=== PATIENT | male | born 1980 | race Caucasian/White ===

== ENCOUNTER 2019-02-17 21:20 | Emergency (ER) | payer OTHER ==
--- NOTE | 2019-02-17 21:21 | EDM.PDOC ---
ED HPI GENERAL MEDICAL PROBLEM - General Chief Complaint: General Stated Complaint: R leg pain Time Seen by Provider: 02/17/19 21:21 Source of Information: Reports: EMS, EMS Notes Reviewed (Not Available at time of dictation), Other (Friend). Denies: Old Records (No [facility] records available) History Limitations: Reports: No Limitations - History of Present Illness INITIAL COMMENTS - FREE TEXT/NARRATIVE: The patient was brought to the emergency room via ambulance with EMT accompaniment with a trauma code called on the scene. Note that the patient was sliding on a plastic sled on a steep slope of about 100 feet in length when he flew off the sled and landed on his right leg with obvious leg deformity noticed by germination testing manager on arrival. They did splint the leg using various objects with additional air compression splint applied. He complains of 10/10 sharp leg pain with additional possible mild right ankle discomfort. No other treatment in route with the patient refusing any pain medications prior to arrival to this facility. Note that he is visiting the area from [place]. His last solid oral intake was at noon today with patient having one beer and one whiskey shortly prior to the above accident, which occurred at about 19:00 hours. He denies any head injury, loss of consciousness, change in mental status, headaches, visual changes, paresthesias, nausea, abdominal pain, dyspnea, neck/ back pain, neurological deficits, or other complaints or injuries. The patient denies any chest pain/pressure, heart flutter, dizziness, orthostasis, orthopnea , diaphoresis, paresthesias, recent decreased exercise tolerance, or any other anginal-type symptoms. No recent history of abdominal pain, heartburn, nausea, diarrhea, melena, gross hematochezia, or any food intolerance, including fatty foods, etc.. The patient also denies any recent fever, cough, wheezing, dyspnea , etc.. Onset: Today, Sudden Onset Date: 02/17/19 Onset Time: 19:00 Duration: Constant Location: Reports: Lower Extremity, Right. Denies: Head, Face, Neck, Chest, Abdomen, Back, Pelvis, Upper Extremity, Left, Upper Extremity, Right, Lower Extremity, Left, Radiates to Quality: Reports: Same as Previous Episode, Sharp Severity: Severe Improves with: Reports: Rest Worsens with: Reports: Movement Context: Reports: Trauma (As above) Associated Symptoms: Denies: Confusion, Chest Pain, Cough, Diaphoresis, Fever/ Chills, Headaches, Loss of Appetite, Malaise, Nausea/Vomiting, Rash, Seizure, Shortness of Breath, Syncope, Weakness Treatments PLANT ASSOCIATE: Reports: Spinal Immobilization Right Lower Leg Pain Score (Numeric/FACES): 10 - Related Data Allergies Allergy/AdvReac Type Severity Reaction Status Date / Time No Known Allergies Allergy Verified 02/17/19 21:21 Past Medical History HEENT History: Reports: None. Denies: Hard of Hearing, Impaired Vision Cardiovascular History: Reports: None. Denies: Afib, Aneurysm, Arrhythmia, Blood Clots/VTE/DVT, CAD, Heart Murmur, High Cholesterol, Hypertension, Syncope Respiratory History: Denies: Asthma, COPD, Intubation, Previous, PE, Pneumothorax, Sleep Apnea Gastrointestinal History: Reports: None. Denies: Celiac Disease, Cholelithiasis , GERD, GI Bleed, Inflammatory Bowel Disease, Irritable Bowel Syndrome, PUD Genitourinary History: Reports: None. Denies: Acute Renal Failure, BPH, Chronic Renal Insuffiency, Renal Calculus, Retention, Urinary, STD, Urinary Incontinence, UTI, Recurrent Musculoskeletal History: Reports: Arthritis, Back Pain, Chronic, Fracture, Osteoarthritis. Denies: Gout, Neck Pain, Chronic, RA, SLE Other Musculoskeletal History: Previous left wrist fracture at age 8 Neurological History: Denies: Cerebral Aneurysms, Concussion, CVA, Headaches, Chronic, Head Trauma, Migraines, Seizure, TIA Psychiatric History: Reports: None. Denies: Abuse, Victim of, ADD, ADHD, Addiction, Anxiety, Depression, Psych Hospitalization(s), PTSD, Suicide Attempt , Suicidal Ideation Endocrine/Metabolic History: Reports: None. Denies: Diabetes, Type I, Diabetes , Type II, Diabetes Mellitus, Type 3c, Hypothyroidism, IDDM Hematologic History: Reports: None. Denies: Anemia, Blood Transfusion(s), Iron Deficiency Immunologic History: Reports: None. Denies: AIDS, HIV, SLE Oncologic (Cancer) History: Reports: None. Denies: Basal Cell Carcinoma, Colon , Hodgkin's Lymphoma, Leukemia, Malignant Melanoma, Non-Hodgkin's Lymphoma, Prostate, Squamous Cell Carcinoma Dermatologic History: Reports: None. Denies: Eczema, Psoriasis - Infectious Disease History Infectious Disease History: Reports: Chicken Pox. Denies: C-Difficile, Measles , Meningitis, Mononucleosis, MRSA, Mumps, Rheumatic Fever, Rubella, Scarlet Fever, TB, VRE - Past Surgical History Head Surgeries/Procedures: Reports: None HEENT Surgical History: Reports: None. Denies: Adenoidectomy, Cataract Surgery , Eye Surgery, Myringotomy w Tube(s), Naso-Sinus Surgery, Oral Surgery, Tonsillectomy Cardiovascular Surgical History: Reports: None. Denies: Varicose Respiratory Surgical History: Reports: None. Denies: Thoracentesis GI Surgical History: Reports: None. Denies: Appendectomy, Cholecystectomy, Colonoscopy, EGD, Hernia, Abdominal, Hernia, Inguinal, Hernia Repair/Other Male Surgical History: Reports: Circumcision, Other (See Below). Denies: TURP-Transurethral Resection of Prostate, Vasectomy Other Male Surgeries/Procedures: Circumcision as an Endocrine Surgical History: Reports: None. Denies: Thyroid Biopsy Neurological Surgical History: Reports: None. Denies: C-Spine, Discectomy, Laminectomy, Lumbar Spine, Sacral Spine, Spinal Fusion, Thoracic Spine, Vertebroplasty Musculoskeletal Surgical History: Reports: None. Denies: Arthroscopic Procedure , Carpal Tunnel, Ganglion Cyst, Joint Replacement, ORIF, Shoulder Surgery Oncologic Surgical History: Reports: None Dermatological Surgical History: Reports: None - Past Imaging History Past Imaging History: Reports: None Social & Family History - Tobacco Use Smoking Status *Q: Current Every Day Smoker Tobacco Use Within Last Twelve Months: Cigarettes Years of Tobacco use: 23 Packs/Tins Daily: 0.2 Packs/Tins Daily Comment: Trying to quit smoking. Maximum use of one pack per day with patient started smoking at age 16. Used Tobacco, but Quit: No - Caffeine Use Caffeine Use: Reports: Coffee (5 cups per day), Soda (Rarely). Denies: Energy Drinks, Tea - Alcohol Use Alcohol Use History: Yes Days Per Week of Alcohol Use: 3 Number of Drinks Per Day: 3 Number of Drinks Per Day Comment: Usually and/or mixed drinks. No previous DWIs , problems with alcohol abuse, etc. Total Drinks Per Week: 9 Date of Last Drink: 02/17/19 Time of Last Drink: 18:30 Alcohol Use in Last Twelve Months: Yes - Recreational Drug Use Recreational Drug Use: Yes Drug Use in Last 12 Months: No Recreational Drug Type: Reports: Marijuana/Hashish (Between ages 18 and 35 and used 35 times per year.). Denies: Amphetamines (Speed), Cocaine, Heroin, Inhalants (Glues, Solvents, Aerosols), LSD (Acid), Methamphetamine, Morphine Recreational Drug Route: Reports: Inhaled - Living Situation & Occupation Living situation: Reports: Single (1 child), with Significant Other (And child) Occupation: Employed ([employer]) ED ROS GENERAL - Review of Systems Review Of Systems: ROS reveals no pertinent complaints other than HPI. ED EXAM, GENERAL - Physical Exam Exam: See Below Exam Limited By: No Limitations General Appearance: Alert, WD/WN, No Apparent Distress Eye Exam: Bilateral Eye: EOMI, Normal Fundi, Normal Inspection (No nystagmus), PERRL Ears: Normal External Exam, Normal Canal, Hearing Grossly Normal, Normal TMs Nose: Normal Inspection, Normal Mucosa, No Blood Throat/Mouth: Normal Inspection, Normal Lips, Normal Teeth, Normal Gums, Normal Oropharynx, Normal Voice, No Airway Compromise. No: Dysphagia, Perioral Cyanosis Head: Atraumatic, Normocephalic. No: Facial Swelling, Facial Tenderness, Sinus Tenderness Neck: Normal Inspection, Supple, Non-Tender, Full Range of Motion. No: Carotid Bruit, Lymphadenopathy (L), Lymphadenopathy (R), Thyromegaly Respiratory/Chest: No Respiratory Distress, Lungs Clear, Normal Breath Sounds, No Accessory Muscle Use, Chest Non-Tender. No: Pleural Rub, Retractions Cardiovascular: Normal Peripheral Pulses, No Edema, No Gallop, No JVD, No Murmur , No Rub, Tachycardia (Mild sinus tachycardia with regular rhythm). No: Regular Rate, Rhythm, Gallop/S3, Gallop/S4, Extra Beats, Friction Rub Peripheral Pulses: 1+: Radial (L), Radial (R), 2+: Posterior Tibial (R), Dorsalis Pedis (R) GI/Abdominal: Normal Bowel Sounds, Soft, Non-Tender, No Organomegaly, No Distention, No Abnormal Bruit, No Mass, Pelvis Stable. No: Guarding (Male) Exam: Deferred Rectal (Males) Exam: Deferred Back Exam: Normal Inspection, Full Range of Motion. No: CVA Tenderness (L), CVA Tenderness (R), Muscle Spasm Extremities: No Pedal Edema, Normal Capillary Refill, Leg Pain (Severe right leg pain with movement), Limited Range of Motion (Current splint), Other (Right lower leg splint present as above with somewhat foot over good pedal pulses as above with borderline foot cyanosis). No: Pallor Neurological: Alert, Oriented, CN II-XII Intact, Normal Cognition, Normal Reflexes (Negative Babinski's), No Motor/Sensory Deficits. No: Normal Gait ( Leg fracture with splint) Psychiatric: Normal Affect, Normal Mood Skin Exam: Warm, Dry, Intact, Normal Color, No Rash. No: Diaphoretic, Ecchymosis, Lymphangitis, Wound/Incision Lymphatic: No Adenopathy Course - Vital Signs Last Recorded V/S: See Trauma Code Sheet - Orders/Labs/Meds Orders: Active Orders 24 hr Category Date Time Status Cardiac Monitoring [RC] . DIRECTED Care 02/17/19 21:23 Ordered Peripheral IV Care [RC] . DIRECTED Care 02/17/19 21:24 Ordered Tibia Fibula Rt [CR] Stat Exams 02/17/19 21:22 Ordered Acetaminophen [Tylenol Extra Strength] Med 02/17/19 22:17 Once 1,000 mg PO ONETIME ONE Lactated Ringers [Ringers, Lactated] 1,000 ml Med 02/17/19 21:55 Ordered IV .BOLUS Sodium Chloride 0.9% [Saline Flush] Med 02/17/19 21:24 Ordered 10 ml FLUSH ASDIRECTED PRN Obtain Past Medical Record [OM.PC] Routine Oth 02/17/19 21:23 Ordered Peripheral IV Insertion Adult [OM.PC] Stat Oth 02/17/19 21:24 Ordered Medication Orders Lactated Ringer's (Ringers, Lactated) 1,000 mls @ 999 mls/hr IV .BOLUS ONE Stop: 02/17/19 22:55 Sodium Chloride (Saline Flush) 10 ml FLUSH ASDIRECTED PRN PRN Reason: Keep Vein Open Last Admin: 02/17/19 21:46 Dose: 10 ml Labs: Laboratory Tests 02/17/19 02/17/19 02/17/19 Range/Units 21:35 21:35 21:35 WBC 25.5 H (4.0-10.2) K/uL RBC 5.04 (4.33-5.41) M/uL Hgb 15.6 (13.1-16.8) g/dL Hct 43.4 (39.0-49.0) % MCV 86.1 (84.0-98.0) fL MCH 31.0 (28.2-33.3) pg MCHC 35.9 (31.7-36.0) g/dL RDW 12.7 (11.2-14.1) % Plt Count 205 (150-350) K/uL Neut % (Auto) 91.7 H (45.0-80.0) % Lymph % (Auto) 4.2 L (10.0-50.0) % [place] % (Auto) 3.7 (2.0-14.0) % Eos % (Auto) 0.3 (0.0-5.0) % Baso % (Auto) 0.1 (0.0-2.0) % Neut # (Auto) 23.40 H (1.40-7.00) K/uL Lymph # (Auto) 1.07 (0.50-3.50) K/uL [place] # (Auto) 0.94 (0.00-1.00) K/uL Eos # (Auto) 0.08 (0.00-0.50) K/uL Baso # (Auto) 0.03 (0.00-0.20) K/uL PT (9.5-12.0) SEC INR APTT (21.0-31.3) SEC Sodium 133 L (136-145) mmol/L Potassium 3.3 L (3.5-5.1) mmol/L Chloride 100 (98-107) mmol/L Carbon Dioxide 23.1 (21.0-32.0) mmol/L BUN 15 (7-18) mg/dL Creatinine 0.77 (0.51-1.17) mg/dL Est Cr Clr Drug Dosing TNP Estimated GFR (MDRD) > 60 mL/min Glucose 121 H (74-106) mg/dL Calcium 8.7 (8.5-10.1) mg/dL Total Bilirubin 0.3 (0.2-1.0) mg/dL AST 19 (15-37) U/L ALT 27 (12-78) U/L Alkaline Phosphatase 83 (46-116) IU/L Total Protein 6.8 (6.4-8.2) g/dL Albumin 3.9 (3.4-5.0) g/dL Amylase 24 L (25-115) U/L Lipase 121 (73-393) U/L Ethyl Alcohol 0.021 (0.000-0.080) g/dL 02/17/19 Range/Units 21:35 WBC (4.0-10.2) K/uL RBC (4.33-5.41) M/uL Hgb (13.1-16.8) g/dL Hct (39.0-49.0) % MCV (84.0-98.0) fL MCH (28.2-33.3) pg MCHC (31.7-36.0) g/dL RDW (11.2-14.1) % Plt Count (150-350) K/uL Neut % (Auto) (45.0-80.0) % Lymph % (Auto) (10.0-50.0) % [place] % (Auto) (2.0-14.0) % Eos % (Auto) (0.0-5.0) % Baso % (Auto) (0.0-2.0) % Neut # (Auto) (1.40-7.00) K/uL Lymph # (Auto) (0.50-3.50) K/uL [place] # (Auto) (0.00-1.00) K/uL Eos # (Auto) (0.00-0.50) K/uL Baso # (Auto) (0.00-0.20) K/uL PT 10.3 (9.5-12.0) SEC INR 1.0 APTT 25.5 (21.0-31.3) SEC Sodium (136-145) mmol/L Potassium (3.5-5.1) mmol/L Chloride (98-107) mmol/L Carbon Dioxide (21.0-32.0) mmol/L BUN (7-18) mg/dL Creatinine (0.51-1.17) mg/dL Est Cr Clr Drug Dosing Estimated GFR (MDRD) mL/min Glucose (74-106) mg/dL Calcium (8.5-10.1) mg/dL Total Bilirubin (0.2-1.0) mg/dL AST (15-37) U/L ALT (12-78) U/L Alkaline Phosphatase (46-116) IU/L Total Protein (6.4-8.2) g/dL Albumin (3.4-5.0) g/dL Amylase (25-115) U/L Lipase (73-393) U/L Ethyl Alcohol (0.000-0.080) g/dL Meds: Medications Generic Name Dose Route Start Last Admin Trade Name Freq PRN Reason Stop Dose Admin Lactated Ringer's 1,000 mls @ 999 mls/hr 02/17/19 21:55 Ringers, Lactated IV 02/17/19 22:55 .BOLUS ONE Sodium Chloride 10 ml 02/17/19 21:24 02/17/19 21:46 Saline Flush FLUSH 10 ml ASDIRECTED PRN Administration Keep Vein Open Discontinued Medications Generic Name Dose Route Start Last Admin Trade Name Freq PRN Reason Stop Dose Admin Fentanyl 100 mcg 02/17/19 21:24 02/17/19 21:41 Sublimaze IVPUSH 02/17/19 21:25 50 mcg ONETIME ONE Administration Ondansetron HCl 4 mg 02/17/19 21:24 02/17/19 21:41 Zofran IVPUSH 02/17/19 21:25 4 mg ONETIME ONE Administration - Radiology Interpretation Free Text/Narrative:: X-rays of the right tibia and fibula, 2 views, shows evidence of a severely comminuted proximal mildly angulated proximal tibial and fibular fracture with lateral knee space involvement conveyor monitor shows sinus tachycardia with initial heart rate in the 100s with no ectopy or arrhythmia. Rate improved to the 80s to 90s prior to transfer. Departure - Departure Time of Disposition: 22:35 Disposition: DC/Tfer to [facility] 02 Clinical Impression: Fracture of proximal end of tibia and fibula, Osteoarthritis, Tobacco abuse counseling, Leukocytosis, Hyponatremia, Hypokalemia - Discharge Information *PRESCRIPTION DRUG MONITORING PROGRAM REVIEWED*: Not Applicable *COPY OF PRESCRIPTION DRUG MONITORING REPORT IN PATIENT LEIGHANN: Not Applicable Forms: ED Department Discharge, Interfacility Transfer EMTALA - Problem List & Annotations (1) Fracture of proximal end of tibia and fibula SNOMED Code(s): 24630154 Code(s): S82.109A - UNSP FRACTURE OF UPPER END OF UNSP TIBIA, INIT FOR CLOS FX; S82.839A - OTH FRACTURE OF UPPER AND LOWER END OF UNSP FIBULA, INIT Status : Acute Priority: High Onset Date: 02/17/19 Annotation/Comment:: Trauma Code called by germination testing manager as above. Shortly after patient's arrival to this facility and based on my initial brief primary clinical exam and the above history the trauma code was down graded. IV fentanyl was initiated for pain control. Excellent pedal pulses with patient's right leg left in the splint. IV bolus of lactated Ringer's was initiated in the emergency room with continuation of aggressive IV hydration in route after completion of the initial liter. Telephone consultation at 21:[address] Zuñiga, emergency room physician at [facility] in [place], who does accept the patient for evaluation and treatment, with no further treatment recommendations given. Pain under adequate control at time of patient transfer with vital signs, etc. also stable. Qualifiers: Encounter type: initial encounter Fracture type: closed Laterality: right Qualified Code(s): S82.101A - Unspecified fracture of upper end of right tibia, initial encounter for closed fracture; S82.831A - Other fracture of upper and lower end of right fibula, initial encounter for closed fracture (2) Hypokalemia SNOMED Code(s): 83724902 Code(s): E87.6 - HYPOKALEMIA Status: Acute Priority: Medium Onset Date : 02/17/19 Annotation/Comment:: IV fluids as above. Three loose mild loose stools a couple days ago with no known exposure to infection despite significant leukocytosis likely secondary to stress reaction from current injury. No recent emesis, nausea, known fever, UTI symptoms, or other known source of infection. Note fever in the ER today. (3) Hyponatremia SNOMED Code(s): 20251500 Code(s): E87.1 - HYPO-OSMOLALITY AND HYPONATREMIA Status: Acute Priority : Medium Onset Date: 02/17/19 Annotation/Comment:: As above (4) Leukocytosis SNOMED Code(s): 615286015, 253514568 Code(s): D72.829 - ELEVATED WHITE BLOOD CELL COUNT, UNSPECIFIED Status: Acute Priority: High Onset Date: 02/17/19 Annotation/Comment:: As above. Consider workup for his current fever, etc. Qualifiers: Leukocytosis type: bandemia Qualified Code(s): D72.825 - Bandemia (5) Osteoarthritis SNOMED Code(s): 883492945 Code(s): M19.90 - UNSPECIFIED OSTEOARTHRITIS, UNSPECIFIED SITE Status: Chronic Priority: Medium Annotation/Comment:: Otherwise stable by history Qualifiers: Osteoarthritis location: multiple joints Osteoarthritis type: primary Qualified Code(s): M15.0 - Primary generalized (osteo)arthritis (6) Tobacco abuse counseling SNOMED Code(s): 905547050, 033184296, 270945018 Code(s): Z71.6 - TOBACCO ABUSE COUNSELING Status: Chronic Priority: Medium Annotation/Comment:: Patient currently using a nicotinic patch, and he was congratulated about trying to quit smoking. - Problem List Review Problem List Initiated/Reviewed/Updated: Yes - My Orders Last 24 Hours: My Active Orders 02/17/19 21:22 Tibia Fibula Rt [CR] Stat 02/17/19 21:23 Cardiac Monitoring [RC] . DIRECTED Obtain Past Medical Record [OM.PC] Routine 02/17/19 21:24 Peripheral IV Care [RC] . DIRECTED Sodium Chloride 0.9% [Saline Flush] 10 ml FLUSH ASDIRECTED PRN Peripheral IV Insertion Adult [OM.PC] Stat 02/17/19 21:55 Lactated Ringers [Ringers, Lactated] 1,000 ml IV .BOLUS 02/17/19 22:17 Acetaminophen [Tylenol Extra Strength] 1,000 mg PO ONETIME ONE - Assessment/Plan Last 24 Hours: My Active Orders 02/17/19 21:22 Tibia Fibula Rt [CR] Stat 02/17/19 21:23 Cardiac Monitoring [RC] . DIRECTED Obtain Past Medical Record [OM.PC] Routine 02/17/19 21:24 Peripheral IV Care [RC] . DIRECTED Sodium Chloride 0.9% [Saline Flush] 10 ml FLUSH ASDIRECTED PRN Peripheral IV Insertion Adult [OM.PC] Stat 02/17/19 21:55 Lactated Ringers [Ringers, Lactated] 1,000 ml IV .BOLUS 02/17/19 22:17 Acetaminophen [Tylenol Extra Strength] 1,000 mg PO ONETIME ONE Assessment:: As above Plan: As above. Extensive precautions were given to the patient, who is in agreement with the treatment plan. Ambulance transfer with jewelry technician accompaniment as above.
[2019-02-17] MEDS ORDERED: Sodium Chloride 0.9% 10 ML Syringe FLUSH PRN (21:24)
[2019-02-17] MEDS ORDERED: fentaNYL 100 MCG/2 ML SDV IVPUSH ONE (21:24)
[2019-02-17] MEDS ORDERED: Ondansetron 4 MG/2 ML SDV IVPUSH ONE (21:24)
[2019-02-17 21:52] LABS: CHLORIDE,CL 100 mmol/L (98-107); SODIUM,NA 133 mmol/L (136-145)
[2019-02-17] MEDS ORDERED: Lactated Ringers 1,000 ML IV ONE (21:55)
[2019-02-17] MEDS ORDERED: Acetaminophen 500 MG Tab PO ONE (22:17)
== END 2019-02-17 22:35 ==
LOC: LL.ED 21:20
DX: S82.101A Unspecified fracture of upper end of right tibia, initial encounter for closed fracture (principal); S82.831A Other fracture of upper and lower end of right fibula, initial encounter for closed fracture; E87.6 Hypokalemia; E87.1 Hypo-osmolality and hyponatremia; D72.829 Elevated white blood cell count, unspecified; Z71.6 Tobacco abuse counseling; F17.210 Nicotine dependence, cigarettes, uncomplicated; M19.90 Unspecified osteoarthritis, unspecified site; W17.89XA Other fall from one level to another, initial encounter
CPT/HCPCS: 36415; 73590-RT; 80053; 82150; 83690; 85025; 85610; 85730; 96361; 96374; 96375; 96376; 99285-25; A9270-GY; G0480; J2405; J3010; J7120